=== PATIENT | female | born 1985 | race Caucasian/White ===

== ENCOUNTER 2017-08-14 10:45 | Day surgery (SDC) | payer OTHER ==
[2017-08-14] MEDS ORDERED: IOHEXOL 300MG/ML 30 ML BTL (12:31)
[2017-08-14] MEDS ORDERED: LIDOCAINE 2% (SDV) 5 ML INJ (12:42)
[2017-08-14] MEDS ORDERED: SUCCINYLCHOLINE CHLORIDE 100 MG/5 ML SYG IV (12:42)
[2017-08-14] MEDS ORDERED: NEOSTIGMINE 3 MG/3 ML SYRINGE ×2 (12:42→13:32)
[2017-08-14] MEDS ORDERED: ROCURONIUM 50 MG INJ (12:42)
[2017-08-14] MEDS ORDERED: GLYCOPYRROLATE 0.4 MG INJ ×3 (12:42→13:32)
[2017-08-14] MEDS ORDERED: PROPOFOL 20 ML (12:42)
[2017-08-14] MEDS ORDERED: MEPERIDINE 100 MG INJ (12:43)
[2017-08-14] MEDS ORDERED: ONDANSETRON 4 MG INJ (13:30)
[2017-08-14] MEDS ORDERED: METOCLOPRAMIDE 10 MG INJ (13:30)
[2017-08-14] MEDS ORDERED: CEFAZOLIN 1 GM INJ (13:40)
[2017-08-14] MEDS ORDERED: HYDROmorphONE (0.2 MG/ML) 10ML SYG IV ×2 (14:00)
[2017-08-14] MEDS ORDERED: MEPERIDINE 25 MG INJ IV (14:00)
[2017-08-14] MEDS ORDERED: HYDROCODONE/APAP (5/325) TAB PO (14:00)
[2017-08-14] MEDS ORDERED: LABETALOL HCL 20MG INJ IV (14:00)
[2017-08-14] MEDS ORDERED: EPHEDrine SULFATE 50 MG/5 ML SYG IV (14:00)
[2017-08-14] MEDS ORDERED: MIDAZOLAM 1 MG/ML 2 ML INJ IV (14:00)
[2017-08-14] MEDS ORDERED: ONDANSETRON 4 MG INJ IV (14:00)
[2017-08-14] MEDS ORDERED: OXYCODONE/ACETAMINOPHEN (5/325) TAB PO ×2 (14:00)
[2017-08-14] MEDS ORDERED: DIPHENHYDRAMINE 50 MG INJ IV (14:00)
[2017-08-14] MEDS ORDERED: FENTAnyl 50 MCG/ML VIAL IV ×3 (14:00)
[2017-08-14] MEDS ORDERED: hydrALAzine 20 MG INJ IV (14:00)
[2017-08-14] MEDS: HYDROmorphONE (0.2 MG/ML) 10ML SYG IV (14:13)
== END 2017-08-14 16:04 | disposition home or self-care (01) ==
LOC: SDS 10:45
DX: N20.1 Calculus of ureter (principal); E66.01 Morbid (severe) obesity due to excess calories; Z68.39 Body mass index [BMI] 39.0-39.9, adult
CPT/HCPCS: 52356; 74430; 84703; 87086; 88300; 93005